=== PATIENT | male | born 1965 | race Two or more races ===

== ENCOUNTER 2020-03-01 21:08 | Inpatient (IN) | payer MEDICARE, OTHER ==
[~2020-03-01] VITALS: Ht 172.7 cm; Wt 74.8 kg
[2020-03-01 21:15] VITALS: BP 107/71
--- NOTE | 2020-03-01 21:15 | NUR ---
[place] Nurse Note: pt brought to the ed department by amabulalia from [facility]. C/O weakness and trembelling x5days. pt had multiple fall due to weakness in shelter. pt has right hand and leg weakness, right is not reactive to light , vitals are stable, and A&Ox4.
--- NOTE | 2020-03-01 21:18 | NUR ---
ED Nurse Note: Iv intiated; blood sent to the lab.
--- NOTE | 2020-03-01 21:32 | Emergency Room Report ---
History of Present Illness General Chief Complaint: General Complaint Source: Medical Record Present Illness HPI Disclaimer: Please note that this report is being documented using SplitON technology. This can lead to erroneous entry secondary to incorrect interpretation by the dictating instrument. HPI: 54-year-old male history of psychiatric disease, hypertension presents from [facility] facility due to generalized weakness and multiple falls. Patient has had multiple falls over the past week. States he has felt some right-sided weakness over the past week as well. Denies any headache nausea or vomiting. Presented by private ambulance from [facility] facility. Allergies: Coded Allergies: No Known Allergies (Unverified , 03/01/20) COVID-19 Screening Contact w/high risk pt: No Experienced COVID-19 symptoms?: No COVID-19 Testing performed INSPECTOR METAL FABRICATING: No Patient History Reviewed Nursing Documentation: PMH: Agreed; PSxH: Agreed Nursing Documentation-PMH Hx Hypertension: Yes Review of Systems All Other Systems: negative except mentioned in HPI Physical Exam Vital Signs Date Time Temp Pulse Resp B/P (MAP) Pulse Ox O2 Delivery O2 Flow Rate FiO2 03/01/20 21:09 98.4 105 18 110/67 (81) 95 Nasal Cannula 2.0 Sp02 EP Interpretation: reviewed, normal General Appearance: well appearing, no apparent distress Head: normocephalic, atraumatic Eyes: bilateral eye PERRL, bilateral eye EOMI ENT: hearing grossly normal, moist mucus membranes Neck: full range of motion, supple, other - C-spine nontender Respiratory: lungs clear, normal breath sounds, no rhonchi, no respiratory distress, no retraction, no wheezing Cardiovascular #1: normal peripheral pulses, regular rate, rhythm, no murmur Gastrointestinal: non tender, soft, non-distended, no guarding Musculoskeletal: other - Full range of motion of all 4 extremities without deformity Neurologic: alert, slug press operator III-XII nml as tested, oriented x3, no focal defects, other - Right upper and lower extremity strength 4+ out of 5 compared to the left Skin: normal color, warm/dry Medical Decision Making ER Course MDM: Differential diagnosis included but not limited to stroke, generalized weakness, dehydration, electrolyte disturbance, head injury to name a few Clinical course-basic laboratory studies were sent, CT scan of the brain susan prince Patient signed out to oncoming physician to follow-up on laboratory studies and final disposition. EKG Diagnostic Results Rate: normal Rhythm: NSR ST Segments: no acute changes Last Vital Signs Date Time Temp Pulse Resp B/P (MAP) Pulse Ox O2 Delivery O2 Flow Rate FiO2 03/01/20 21:09 98.4 105 18 110/67 (81) 95 Nasal Cannula 2.0 Dre Dash M.D. Mar 01, 2020 21:32
[2020-03-01 21:39] LABS: HEMATOCRIT 44.6 % (42.0-52.0); HEMOGLOBIN 16.1 G/DL (14.2-18.0); MEAN CORPUSCULAR VOLUME 81 FL (80-99); PLATELET COUNT 166 K/UL (150-450); RED BLOOD COUNT 5.51 M/UL (4.70-6.10); RED CELL DISTRIBUTION WIDTH 13.5 % (11.6-14.8); WHITE BLOOD COUNT 13.8 K/UL (4.8-10.8)
[2020-03-01 21:57] LABS: CREATININE 1.3 MG/DL (0.55-1.30); POTASSIUM 3.8 MMOL/L (3.5-5.1)
[2020-03-01 22:01] LABS: ALBUMIN 3.8 G/DL (3.4-5.0); ALBUMIN/GLOBULIN RATIO 1.1 (1.0-2.7); BILIRUBIN,TOTAL 0.4 MG/DL (0.2-1.0)
--- NOTE | 2020-03-01 22:08 | Diagnostic Imaging Report ---
EXAM: XR Chest, 1 View CLINICAL HISTORY: WEAK TECHNIQUE: Frontal view of the chest. COMPARISON: No relevant prior studies available. FINDINGS: Lungs: Patchy bibasilar infiltrates. Pleural space: Unremarkable. No pneumothorax. Heart: Unremarkable. No cardiomegaly. Mediastinum: Unremarkable. Bones/joints: No acute fracture. IMPRESSION: Patchy bibasilar infiltrates.
[2020-03-01] MEDS ORDERED: cefTRIAXone 1 GM in NS 55 ML IVPB ONE (22:30)
[2020-03-01] MEDS ORDERED: Azithromycin 500 MG in NS 275 ML IV ONE (22:30)
--- NOTE | 2020-03-01 22:36 | NUR ---
ED Nurse Note: pt left for Ct scan
[2020-03-01] MEDS ORDERED: RISPERDAL2 MG ORAL (22:45)
[2020-03-01] MEDS ORDERED: AMLODIPINE BES2.5 MG ORAL (22:46)
--- NOTE | 2020-03-01 22:46 | NUR ---
ED Nurse Note: pt is back from Ct scan
--- NOTE | 2020-03-01 22:58 | Diagnostic Imaging Report ---
EXAM: CT Head Without Intravenous Contrast CLINICAL HISTORY: WEAK TECHNIQUE: Axial computed tomography images of the head/brain without intravenous contrast. CTDI is 53.4 mGy and DLP is 992.1 mGy-cm. One or more of the following dose reduction techniques were used: automated exposure control, adjustment of the mA and/or kV according to patient size, use of iterative reconstruction technique. COMPARISON: No relevant prior studies available. FINDINGS: Brain: No hemorrhage. No edema. Ventricles: No ventriculomegaly. Bones/joints: No acute fracture. Soft tissues: Mild scalp swelling. Sinuses: No acute sinusitis. Mastoid air cells: No mastoid effusion. IMPRESSION: No acute findings in the head/brain.
--- NOTE | 2020-03-01 23:33 | Emergency Room Report ---
Physical Exam Vital Signs Date Time Temp Pulse Resp B/P (MAP) Pulse Ox O2 Delivery O2 Flow Rate FiO2 03/01/20 21:09 98.4 105 18 110/67 (81) 95 Nasal Cannula 2.0 Medical Decision Making Diagnostic Impression: Primary Impression: Sepsis Qualified Codes: A41.9 - Sepsis, unspecified organism Additional Impressions: Healthcare-associated pneumonia Acute metabolic encephalopathy ER Course This is a 54-year-old male coming from group home. He presents with generalized weakness and shakiness. Patient was signed out to me. Chest x-ray showed right middle lobe infiltrate. CT scan was negative. Patient received antibiotics and fluids here. Will admit for IV antibiotics and monitoring. I discussed the case with Dr. Hernandez. Chest X-Ray Diagnostic Results Chest X-Ray Diagnostic Results : Chest X-Ray Ordered: Yes # of Views/Limited/Complete: 1 View Indication: Shortness of Breath EP Interpretation: Yes Interpretation: no effusion, no pneumothorax, other - Right middle lobe infiltrate Impression: Other - RML infiltrate Electronically Signed by: Sumanth Delgado MD CT/MRI/US Diagnostic Results CT/MRI/US Diagnostic Results : Imaging Test Ordered: CT head Impression Negative per radiologist Last Vital Signs Date Time Temp Pulse Resp B/P (MAP) Pulse Ox O2 Delivery O2 Flow Rate FiO2 03/01/20 21:15 97.2 92 18 107/71 97 Nasal Cannula 2.0 Status: improved Disposition: ADMITTED INPATIENT Condition: Serious Referrals: Nash Hernandez MD (PCP) Sumanth Delgado MD Mar 01, 2020 23:33
--- NOTE | 2020-03-01 23:36 | Emergency Room Report ---
Sepsis Event Note Evaluation Current Stage of Sepsis: Sepsis Possible Source: Pulmonary Focused Exam Allergies: Coded Allergies: No Known Allergies (Unverified , 03/01/20) Date Exam Occurred: Mar 01, 2020 Time Exam Occurred: 23:36 Laboratory Studies Laboratory Tests Test 03/01/20 21:27 03/01/20 21:40 03/01/20 23:11 White Blood Count 13.8 K/UL (4.8-10.8) H Red Blood Count 5.51 M/UL (4.70-6.10) Hemoglobin 16.1 G/DL (14.2-18.0) Hematocrit 44.6 % (42.0-52.0) Mean Corpuscular Volume 81 FL (80-99) Mean Corpuscular Hemoglobin 29.2 PG (27.0-31.0) Mean Corpuscular Hemoglobin Concent 36.0 G/DL (32.0-36.0) Red Cell Distribution Width 13.5 % (11.6-14.8) Platelet Count 166 K/UL (150-450) Mean Platelet Volume 6.6 FL (6.5-10.1) Neutrophils (%) (Auto) % (45.0-75.0) Lymphocytes (%) (Auto) % (20.0-45.0) Monocytes (%) (Auto) % (1.0-10.0) Eosinophils (%) (Auto) % (0.0-3.0) Basophils (%) (Auto) % (0.0-2.0) Differential Total Cells Counted 100 Neutrophils % (Manual) 90 % (45-75) H Lymphocytes % (Manual) 2 % (20-45) L Monocytes % (Manual) 5 % (1-10) Eosinophils % (Manual) 0 % (0-3) Basophils % (Manual) 0 % (0-2) Band Neutrophils 3 % (0-8) Platelet Estimate Adequate Platelet Morphology Normal Red Blood Cell Morphology Normal Prothrombin Time 11.5 SEC (9.30-11.50) Prothromb Time International Ratio 1.0 (0.9-1.1) Activated Partial Thromboplast Time 27 SEC (23-33) Sodium Level 139 MMOL/L (136-145) Potassium Level 3.8 MMOL/L (3.5-5.1) Chloride Level 103 MMOL/L (98-107) Carbon Dioxide Level 27 MMOL/L (21-32) Anion Gap 9 mmol/L (5-15) Blood Urea Nitrogen 20 mg/dL (7-18) H Creatinine 1.3 MG/DL (0.55-1.30) Estimat Glomerular Filtration Rate 58.0 mL/min (>60) Glucose Level 136 MG/DL (74-106) H Lactic Acid Level 3.30 mmol/L (0.4-2.0) H Pending Calcium Level 9.0 MG/DL (8.5-10.1) Total Bilirubin 0.4 MG/DL (0.2-1.0) Aspartate Amino Transf (AST/SGOT) 15 U/L (15-37) Alanine Aminotransferase (ALT/SGPT) 20 U/L (12-78) Alkaline Phosphatase 104 U/L (46-116) Total Protein 7.4 G/DL (6.4-8.2) Albumin 3.8 G/DL (3.4-5.0) Globulin 3.6 g/dL Albumin/Globulin Ratio 1.1 (1.0-2.7) Lipase 299 U/L (73-393) Ammonia 18 umol/L (11-32) Vital Signs Last 24 Hour Vital Signs Date Time Temp Pulse Resp B/P (MAP) Pulse Ox O2 Delivery O2 Flow Rate FiO2 03/01/20 21:15 97.2 92 18 107/71 97 Nasal Cannula 2.0 03/01/20 21:15 91 18 Nasal Cannula 2.0 03/01/20 21:09 98.4 105 18 110/67 (81) 95 Nasal Cannula 2.0 Respiratory Exam: Rhonchi Cardiovascular Exam: RRR Capillary Refill: Less Than 2 Seconds Peripheral Pulse: Strong Pulse Location: Radial Skin Exam: Normal Sumanth Harper MD Mar 01, 2020 23:36
[2020-03-01 23:39] VITALS: BP 114/68
--- NOTE | 2020-03-01 23:40 | NUR ---
ED Nurse Note: Pt is on the bed calm,no sob, and vitals are stable.
[2020-03-02] MEDS ORDERED: LORazepam Inj 2mg/ml 1ml IV ONE (00:45)
--- NOTE | 2020-03-02 03:39 | NUR ---
ED Nurse Note: Called his mom oleg and updated her about her son
--- NOTE | 2020-03-02 06:09 | NUR ---
ED Nurse Note: pt bp is low 81/54. ERMD ordered fluid and pt is Trendelenburg position
[2020-03-02 06:11] VITALS: BP 81/54
--- NOTE | 2020-03-02 07:04 | NUR ---
HAND-OFF: Report given to ESTELA jeff.
--- NOTE | 2020-03-02 07:04 | NUR ---
ED Nurse Note: care recived from Phil.
[2020-03-02 07:40] VITALS: BP_SYST 81; BP_SYST 98; BP_DIAS 54; BP_DIAS 58
--- NOTE | 2020-03-02 07:52 | NUR ---
ED Nurse Note: Pt is resting comfortably on RA. Vitals stable as documented.
--- NOTE | 2020-03-02 08:04 | NUR ---
ED Nurse Note: Report given to Godwin PALMER
--- NOTE | 2020-03-02 08:15 | NUR ---
TRANSFER TO FLOOR: Patient transferred to as ordered, per ER MD. Report given to Godwin PALMER. Belongings and medications given to sent with pt. Vitals are stable as documented on RA. Transfered to room 409-1 ESTELA orozco at bedside.
--- NOTE | 2020-03-02 08:20 | NUR ---
NURSE NOTES: Received pt from ED. pt is awake and confused; disorientated to time. provided reality orientation. respiration is even and unlabored on room air. no coughing noted at this time. noted slight coughing on bilateral lungs base. HOB elevated. skin is intact. pt is high risk for fall. noted with weakness in all extremities. bed alarm on. bed in locked position for fall precaution. no acute distress noted at this time. placed call light within reach.
[2020-03-02 08:55] VITALS: BP 113/67
[2020-03-02] MEDS ORDERED: Acetaminophen 500mg (ES) tab ORAL PRN (11:15)
[2020-03-02 12:00] VITALS: BP 116/72
--- NOTE | 2020-03-02 13:15 | Consultation ---
DATE OF CONSULTATION: 03/02/2020 CONSULTING PHYSICIAN: Linden Perez ATTENDING PHYSICIAN: Nash Hernandez M.D. REASON FOR CONSULTATION: Altered mental status, pneumonia. HISTORY OF PRESENT ILLNESS: This is a 54-year-old male with history of psychiatric disease, hypertension, who presented from [facility] facility due to generalized weakness and multiple falls over the past week. The patient denies fever, headaches, dizziness, chest pain, shortness of breath. CT of the head showed no acute findings in the head or brain. Chest x-ray showed patchy bibasilar infiltrates. The patient was negative for COVID-19. The patient received antibiotics and fluids and was admitted for IV antibiotics and monitoring. PAST MEDICAL HISTORY: Notable for hypertension and psychiatric disease. MEDICATIONS: Amlodipine, risperidone noted. ALLERGIES: No known allergies. FAMILY HISTORY: Noncontributory. PERSONAL AND SOCIAL HISTORY: assisted facility resident. REVIEW OF SYSTEMS: HEENT: Denies any headaches, blurry vision, hoarseness, dysphagia, hearing loss, tinnitus, or loss of balance. CHEST AND LUNGS: Denies any chest discomfort or hemoptysis. CARDIOVASCULAR: Denies any exertional chest pain, pressure, palpitation, orthopnea, PND, or ankle swelling. GASTROINTESTINAL: Denies vomiting, abdominal pain, or oily or foul-smelling stools. No constipation or hematochezia. GENITOURINARY: Denies any frequency, urgency, dysuria, hematuria, flank pain, kidney stone, or kidney disease. NEUROLOGICAL: Complains of mild weakness in his right hand, stating "I cannot extend my index finger." PHYSICAL EXAMINATION: VITAL SIGNS: Blood pressure 112/75, heart rate 61, respiratory rate 16, weight 75 kg, height 170 cm. HEENT: Head examination reveals that the head is normocephalic, atraumatic without deformity or unusual swelling. Pupils are round, reactive to light and accommodation normally. There is no nystagmus, lid lag, or exophthalmos. Nasal mucosa is pink. Vision is normal. CHEST AND LUNGS: Rhonchi noted. CARDIOVASCULAR: Reveals normal S1, S2 without murmurs, rubs, or clicks. ABDOMEN: Soft with no tenderness or organomegaly. RECTAL: Deferred. MUSCULOSKELETAL: There is no tenderness to palpation. NEUROLOGICAL: Alert and oriented x3, no focal defects. Right upper and lower extremity strength 4+/5 compared to the left. LABORATORY DATA: Laboratory testing shows WBC 13.8, otherwise unremarkable. Chemistry show BUN 20, glucose 136, lactic acid 2.3. Coagulation panel within normal limits. ASSESSMENT AND PLAN: 1. Pneumonia. - currently saturating well on room air; no fever, shortness of breath. - we will provide supplemental oxygen as needed. - we will continue azithromycin and Rocephin IV. 2. Weakness. - monitor. The care for this patient was discussed with my supervising physician. Time spent for this case was approximately 31 minutes. Javier Robles M.D. IMANI Rodriguez DR: CHITO JOB#: [id number] CC: SHERYL
[2020-03-02 16:00] VITALS: BP 119/72
--- NOTE | 2020-03-02 17:57 | NUR ---
NURSE HAND-OFF: Important Events on Shift:[NEW ADMIT] Patient Status: [STABLE] Diet: JASMEET DIET SOFR EASY CHEW Pending Orders: N/A Pending Results/Labs:N/A Pending MD notification:N/A Latest Vital Signs: Temperature 97.1 , Pulse 70 , B/P 119 /72 , Respiratory Rate 21 , O2 SAT 97 , Room Air, O2 Flow Rate . Vital Sign Comment: STABLE Latest Larson Fall Score: 85 Fall Risk: High Risk Safety Measures: Call light , Bed Alarm , Side Rails Side Rails x3, Bed position . Fall Precautions: Report given to . Addendum: 03/02/20 at 1927 by Godwin Isabel RN HAND-OFF: Report given to JAYME.
--- NOTE | 2020-03-02 19:20 | NUR ---
NURSE NOTES: The patient is alert and oriented x4 and is calm and cooperative with his care and does not seem to be in any active distress at this time.He is room air with Resp even and unlabored.The patient has a left hand 22g saline lock that is patent and asymptomatic.The bed in low level, call light within easy reach and siderails up x2.Will continue to monitor as indicated.
[2020-03-02 20:00] VITALS: BP 104/51
[2020-03-02] MEDS: Azithromycin 500 MG in D5W 275 ML IV SCH (22:20)
[2020-03-02] MEDS: cefTRIAXone 1 GM in D5W 55 ML IVPB SCH (22:20)
--- NOTE | 2020-03-02 22:30 | History and Physical Report ---
DATE OF ADMISSION: 03/01/2020 HISTORY OF PRESENT ILLNESS: The patient comes in admitted for pneumonia and leukocytosis. Chest x-ray shows right middle lobe infiltrate, COVID negative and also admitted for altered mental status. The patient is more confused than baseline. The patient denies nausea, vomiting, or diarrhea. Does have dry cough and shortness of breath for two days. Denies headache. Denies nausea, vomiting, or diarrhea. Denies fever or chills. PAST MEDICAL HISTORY: Psychosis and hypertension. PAST SURGICAL HISTORY: None. FAMILY HISTORY: Noncontributory. SOCIAL HISTORY: He has history of smoking, history of drug abuse. Denies alcohol abuse. Lives in a boarding again. ALLERGIES: No known allergies. MEDICATIONS: Norvasc, Risperdal. REVIEW OF SYSTEMS: HEENT: Denies headaches. Denies shortness of breath. Does have cough and shortness of breath for 2 days, which is nonproductive. CARDIOVASCULAR: Denies chest pain. Denies nausea, vomiting, or diarrhea. EXTREMITIES: Has generalized pain and feels weak. CENTRAL NERVOUS SYSTEM: Denies change change in speech pattern. Feels weak. PHYSICAL EXAMINATION: VITAL SIGNS: Temperature is 97.2 and blood pressure is 122/68. NECK: Supple. No lymphadenopathy. CHEST: Clear to auscultation CARDIOVASCULAR: Regular rate and rhythm. No murmurs or extra sounds. GASTROINTESTINAL: Soft, nontender, nondistended. No organomegaly. EXTREMITIES: No edema. Moves all four extremities. Reflexes equal on both sides. He has generalized weakness. Dorsalis pedis pulses are present. LABORATORY DATA: Chest x-ray shows infiltrate the right middle lobe. WBC of 13.8, hemoglobin 16.1, platelet of 166. Sodium 139, potassium of 3.8, BUN of 20, creatinine of 1.3, and glucose of 136. ASSESSMENT: 1. Pneumonia. 2. Respiratory insufficiency. 3. Shortness of breath. 4. Altered mental status is most likely due to pneumonia. PLAN: I have consulted internist and Infectious Disease to help with the management of the pneumonia, Dr. Sullivan, Dr. Robles and Dr. Kentrell Arboleda. Antibiotics per Dr. Kentrell Arboleda. Nash Hernandez M.D. DR: Dara JOB#: [id number] CC:
[2020-03-03] VITALS: BP 103/59
[2020-03-03 04:00] VITALS: BP 114/74
--- NOTE | 2020-03-03 07:10 | NUR ---
NURSE HAND-OFF: Important Events on Shift:Alert and stable Patient Status: Diet: Pending Orders: Pending Results/Labs: Pending MD notification: Latest Vital Signs: Temperature 97.4 , Pulse 64 , B/P 114 /74 , Respiratory Rate 19 , O2 SAT 96 , Room Air, O2 Flow Rate . Vital Sign Comment: Latest Larson Fall Score: 85 Fall Risk: High Risk Safety Measures: Call light , Bed Alarm , Side Rails Side Rails x3, Bed position . Fall Precautions: Report given to .
--- NOTE | 2020-03-03 07:34 | NUR ---
NURSE NOTES: Report received from ESTELA Villatoro. Patient awake in bed, alert and oriented x 2, no SOB, bed in lowest position with breaks engaged and alarm on, denies any pain and discomfort at this time, IV line present on left hand, on room air, on fall and safety precautions, will continue to monitor and proceed with plan of care, call light within reach.
[2020-03-03 08:00] VITALS: BP 119/69
[2020-03-03 08:00] LABS: BASOPHILS % (AUTO) 1.1 % (0.0-2.0); EOSINOPHILS % (AUTO) 2.1 % (0.0-3.0); HEMATOCRIT 37.7 % (42.0-52.0); HEMOGLOBIN 13.1 G/DL (14.2-18.0); LYMPHOCYTES % (AUTO) 19.8 % (20.0-45.0); MEAN CORPUSCULAR VOLUME 85 FL (80-99); MONOCYTES % (AUTO) 6.9 % (1.0-10.0); NEUTROPHILS % (AUTO) 70.2 % (45.0-75.0); PLATELET COUNT 154 K/UL (150-450); RED BLOOD COUNT 4.45 M/UL (4.70-6.10); RED CELL DISTRIBUTION WIDTH 13.3 % (11.6-14.8); WHITE BLOOD COUNT 7.1 K/UL (4.8-10.8)
[2020-03-03 08:12] LABS: ALANINE AMINOTRANSFERASE 15 U/L (12-78); ALBUMIN 2.7 G/DL (3.4-5.0); ALBUMIN/GLOBULIN RATIO 0.9 (1.0-2.7); ALKALINE PHOSPHATASE 70 U/L (46-116); ANION GAP 7 mmol/L (5-15); ASPARTATE AMINO TRANSFERASE 19 U/L (15-37); BILIRUBIN,TOTAL 0.3 MG/DL (0.2-1.0); BLOOD UREA NITROGEN 12 mg/dL (7-18); CALCIUM 8.4 MG/DL (8.5-10.1); CARBON DIOXIDE 24 MMOL/L (21-32); CHLORIDE 109 MMOL/L (98-107); POTASSIUM 3.9 MMOL/L (3.5-5.1); SODIUM 140 MMOL/L (136-145)
[2020-03-03 12:00] VITALS: BP 114/67
--- NOTE | 2020-03-03 13:56 | Pulmonology Progress Note ---
Subjective ROS Limited/Unobtainable: No Constitutional: Reports: no symptoms HEENT: Repors: no symptoms Respiratory: Reports: dry cough Cardiovascular: Reports: no symptoms Gastrointestinal/Abdominal: Reports: no symptoms Allergies: Coded Allergies: No Known Allergies (Unverified , 03/01/20) Objective Last 24 Hour Vital Signs Date Time Temp Pulse Resp B/P (MAP) Pulse Ox O2 Delivery O2 Flow Rate FiO2 03/03/20 12:00 97.7 72 19 114/67 (83) 97 03/03/20 09:00 Room Air 03/03/20 08:06 64 119/79 03/03/20 08:00 97.6 78 20 119/69 (86) 97 03/03/20 04:00 97.4 64 19 114/74 (87) 96 03/03/20 00:00 97.5 65 20 103/59 (74) 97 03/02/20 21:00 Room Air 03/02/20 20:00 97.3 78 20 104/51 (68) 97 03/02/20 16:00 97.1 70 21 119/72 (88) 97 Intake and Output 03/02/20 03/03/20 19:00 07:00 Intake Total 1200 ml 250 ml Output Total 1600 ml 720 ml Balance -400 ml -470 ml Intake Oral 1200 ml 250 ml Output Urine Total 1600 ml 720 ml # Voids 1 2 Objective 03/03 saturating well on RA General Appearance: WD/WN, no acute distress HEENT: normocephalic, atraumatic Respiratory: other - rhonchi Cardiovascular: normal rate, regular rhythm Abdomen: soft, non tender Extremities: no edema Microbiology Date/Time Source Procedure Growth Status 03/01/20 22:16 Nasopharynx SARS-CoV-2 RdRp Gene Assay - Final Complete 03/01/20 21:27 Blood Blood Culture - Preliminary NO GROWTH AFTER 24 HOURS Resulted 03/01/20 21:27 Blood Blood Culture - Preliminary NO GROWTH AFTER 24 HOURS Resulted Laboratory Tests 03/03/20 06:50: White Blood Count 7.1, Red Blood Count 4.45L, Hemoglobin 13.1L, Hematocrit 37.7L , Mean Corpuscular Volume 85, Mean Corpuscular Hemoglobin 29.3, Mean Corpuscular Hemoglobin Concent 34.7, Red Cell Distribution Width 13.3, Platelet Count 154, Mean Platelet Volume 6.6, Neutrophils (%) (Auto) 70.2, Lymphocytes (%) (Auto) 19.8L, Monocytes (%) (Auto) 6.9, Eosinophils (%) (Auto) 2.1, Basophils (%) (Auto) 1.1, Sodium Level 140, Potassium Level 3.9, Chloride Level 109H, Carbon Dioxide Level 24, Anion Gap 7, Blood Urea Nitrogen 12, Creatinine 1.0, Estimat Glomerular Filtration Rate > 60, Glucose Level 83, Calcium Level 8.4L, Total Bilirubin 0.3, Aspartate Amino Transf (AST/SGOT) 19, Alanine Aminotransferase (ALT/SGPT) 15, Alkaline Phosphatase 70, Total Protein 5.6L, Albumin 2.7L, Globulin 2.9, Albumin/Globulin Ratio 0.9L Current Medications Medications (Trade) Dose Ordered Sig/Emily Route PRN Reason Start Time Stop Time Status Last Admin Dose Admin Acetaminophen (Tylenol) 500 mg Q4H PRN ORAL Mild Pain (Pain Scale 1-3) 03/02/20 11:15 04/01/20 11:14 Amlodipine Besylate (Norvasc) 2.5 mg DAILY ORAL 03/03/20 09:00 04/02/20 08:59 03/03/20 08:06 Azithromycin 500 mg/Dextrose 275 ml @ 275 mls/hr Q24HRS IV 03/02/20 22:30 03/08/20 23:29 03/02/20 22:20 Ceftriaxone Sodium 1 gm/ Dextrose 55 ml @ 110 mls/hr Q24H IVPB 03/02/20 22:00 03/09/20 21:59 03/02/20 22:20 Risperidone (RisperDAL) 3 mg BID ORAL 03/02/20 18:00 04/16/20 17:59 03/03/20 08:06 Assessment/Plan Assessment/Plan 1. Pneumonia. - currently saturating well on room air; no fever, shortness of breath. - we will provide supplemental oxygen as needed. - we will continue azithromycin and Rocephin IV. 2. Weakness. - monitor. 3. AMS, likely secondary to #1 The care for this patient was discussed with my supervising physician. Time spent for this case was approximately 31 minutes. Devon Powell Mar 03, 2020 13:56
[2020-03-03 16:00] VITALS: BP 121/51
--- NOTE | 2020-03-03 19:36 | NUR ---
NURSE HAND-OFF: Important Events on Shift:[fall and safety precautions, monitoring VS and labs] Patient Status: [stable] Diet: [JASMEET soft easy chew] Pending Orders: [] Pending Results/Labs:[] Pending MD notification:[] Latest Vital Signs: Temperature 97.3 , Pulse 78 , B/P 121 /51 , Respiratory Rate 20 , O2 SAT 96 , Room Air, O2 Flow Rate . Vital Sign Comment: [] Latest Larson Fall Score: 85 Fall Risk: High Risk Safety Measures: Call light , Bed Alarm , Side Rails Side Rails x3, Bed position . Fall Precautions: Report given to [ESTELA Major].
--- NOTE | 2020-03-03 19:45 | NUR ---
NURSE NOTES: Patient awake in bed, alert and oriented x 2, no SOB, asking for food at this time. Bed is locked in lowest position, bed alarm on, denies any pain or discomfort at this time, IV line present on left hand, on room air, on fall and safety precautions, will continue to monitor and proceed with plan of care, call light within reach.
[2020-03-03 20:00] VITALS: BP 102/74
--- NOTE | 2020-03-03 20:01 | Consultation ---
DATE OF CONSULTATION: 03/03/2020 INFECTIOUS DISEASE CONSULT CONSULTING PHYSICIAN: Kentrell Arboleda M.D. ATTENDING PHYSICIAN: Nash Hernandez M.D. REASON FOR CONSULT: Pneumonia. HISTORY OF PRESENT ILLNESS: A 54-year-old white male admitted on 03/01/2020 from a [facility] facility because of weakness, multiple falls. At the time of admission, he had tachycardia with heart rate of 105 and leukocytosis of 13.8. The patient has some lung infiltrate in chest x-ray. PAST MEDICAL HISTORY: Hypertension, psychiatric problem. MEDICATIONS: Getting amlodipine, azithromycin, ceftriaxone, Risperdal, Tylenol. SOCIAL HISTORY: Smoking. Has history of drug abuse. Denies alcohol abuse. Lives in [facility]. REVIEW OF SYSTEMS: The patient has no fever, no chills, no coughing, no shortness of breath, no nausea, no vomiting, no diarrhea. PHYSICAL EXAMINATION: VITAL SIGNS: Temperature 97.7, pulse 72, blood pressure 114/67. GENERAL APPEARANCE: Seems to have normal weight. HEENT: Head and neck, pink conjunctiva. HEART: Normal rate. LUNGS: Clear. ABDOMEN: Soft. EXTREMITIES: No edema. NEUROLOGIC: He is awake, alert, seems anxious. LABORATORY AND DIAGNOSTIC DATA: WBC today is 7.1, hemoglobin 13.1, hematocrit 37.7, platelets is 154. Sodium 140, potassium 3.9, chloride 109, bicarbonate 24, BUN 12, creatinine 1. Lactic acid at the time of admission was 3.3. Albumin is 2.7. Chest x-ray showed patchy basilar infiltrate. CT scan of the head, no acute findings. IMPRESSION: 1. Sepsis with tachycardia and leukocytosis at the time of admission. 2. Has pneumonia. COVID test is negative. 3. Hypertension. 4. Nicotine dependence. 5. Lactic acidosis. RECOMMENDATION: I agree with Zithromax and Rocephin. We will follow up the cultures at the end of my exam. I thank Dr. Hernandez for involving me in the care of this patient. Kentrell Arboleda M.D. DR: SONAM JOB#: [id number] CC: SHERYL
--- NOTE | 2020-03-03 20:14 | General Progress Note ---
Subjective ROS Limited/Unobtainable: Yes Allergies: Coded Allergies: No Known Allergies (Unverified , 03/01/20) Objective Last 24 Hour Vital Signs Date Time Temp Pulse Resp B/P (MAP) Pulse Ox O2 Delivery O2 Flow Rate FiO2 03/03/20 16:00 97.3 78 20 121/51 (74) 96 03/03/20 12:00 97.7 72 19 114/67 (83) 97 03/03/20 09:00 Room Air 03/03/20 08:06 64 119/79 03/03/20 08:00 97.6 78 20 119/69 (86) 97 03/03/20 04:00 97.4 64 19 114/74 (87) 96 03/03/20 00:00 97.5 65 20 103/59 (74) 97 03/02/20 21:00 Room Air Intake and Output 03/02/20 03/03/20 19:00 07:00 Intake Total 1200 ml 250 ml Output Total 1600 ml 720 ml Balance -400 ml -470 ml Intake Oral 1200 ml 250 ml Output Urine Total 1600 ml 720 ml # Voids 1 2 Laboratory Tests 03/03/20 06:50: White Blood Count 7.1, Red Blood Count 4.45L, Hemoglobin 13.1L, Hematocrit 37.7L , Mean Corpuscular Volume 85, Mean Corpuscular Hemoglobin 29.3, Mean Corpuscular Hemoglobin Concent 34.7, Red Cell Distribution Width 13.3, Platelet Count 154, Mean Platelet Volume 6.6, Neutrophils (%) (Auto) 70.2, Lymphocytes (%) (Auto) 19.8L, Monocytes (%) (Auto) 6.9, Eosinophils (%) (Auto) 2.1, Basophils (%) (Auto) 1.1, Sodium Level 140, Potassium Level 3.9, Chloride Level 109H, Carbon Dioxide Level 24, Anion Gap 7, Blood Urea Nitrogen 12, Creatinine 1.0, Estimat Glomerular Filtration Rate > 60, Glucose Level 83, Calcium Level 8.4L, Total Bilirubin 0.3, Aspartate Amino Transf (AST/SGOT) 19, Alanine Aminotransferase (ALT/SGPT) 15, Alkaline Phosphatase 70, Total Protein 5.6L, Albumin 2.7L, Globulin 2.9, Albumin/Globulin Ratio 0.9L Height (Feet): 5 Height (Inches): 8.00 Weight (Pounds): 165 Assessment/Plan Problem List: (1) Sepsis ICD Codes: A41.9 - Sepsis, unspecified organism SNOMED: 90183450, 482259556 Qualifiers: Qualified Codes: A41.9 - Sepsis, unspecified organism (2) Healthcare-associated pneumonia ICD Codes: J18.9 - Pneumonia, unspecified organism SNOMED: 733528420, 139460671 (3) Acute metabolic encephalopathy ICD Codes: G93.41 - Metabolic encephalopathy SNOMED: 84012814, 576859240 Status: progressing Assessment/Plan: afebrile nac sepsis pna resp insuff abx per id reviewed chart and labs Nash Hernandez MD Mar 03, 2020 20:14
[2020-03-03] MEDS: cefTRIAXone 1 GM in D5W 55 ML IVPB SCH (21:42)
[2020-03-03] MEDS: Azithromycin 500 MG in D5W 275 ML IV SCH (21:43)
[2020-03-04] VITALS (7 sets, daily range): BP systolic 92–130; BP diastolic 59–76
--- NOTE | 2020-03-04 08:00 | NUR ---
NURSE HAND-OFF: Important Events on Shift:[fall and safety precautions, monitoring VS and labs] Patient Status: [stable] Diet: [JASMEET soft easy chew] monitor for fall precautions, pt not trying to get out of bed overnight, rested comfortably VSS Latest Larson Fall Score: 85 Fall Risk: High Risk Safety Measures: Call light , Bed Alarm , Side Rails Side Rails x3, Bed position . Fall Precautions: Report given to Chuy PALMER
--- NOTE | 2020-03-04 09:06 | Pulmonology Progress Note ---
Subjective ROS Limited/Unobtainable: Yes Interval Events: none new reported per nursing Constitutional: Reports: no symptoms HEENT: Repors: no symptoms Respiratory: Reports: dry cough Cardiovascular: Reports: no symptoms Gastrointestinal/Abdominal: Reports: no symptoms Allergies: Coded Allergies: No Known Allergies (Unverified , 03/01/20) Objective Last 24 Hour Vital Signs Date Time Temp Pulse Resp B/P (MAP) Pulse Ox O2 Delivery O2 Flow Rate FiO2 03/04/20 04:00 97.3 60 16 95/60 (72) 95 03/04/20 00:00 97.2 76 16 130/76 (94) 99 03/03/20 21:00 Room Air 03/03/20 20:00 97.0 65 20 102/74 (83) 97 03/03/20 16:00 97.3 78 20 121/51 (74) 96 03/03/20 12:00 97.7 72 19 114/67 (83) 97 Intake and Output 03/03/20 03/04/20 19:00 07:00 Intake Total 480 ml Balance 480 ml Intake Oral 480 ml Objective 03/04 no change 03/03 saturating well on RA General Appearance: WD/WN, no acute distress HEENT: normocephalic, atraumatic Respiratory: other - rhonchi Cardiovascular: normal rate, regular rhythm Abdomen: soft, non tender Extremities: no edema Microbiology Date/Time Source Procedure Growth Status 03/01/20 22:16 Nasopharynx SARS-CoV-2 RdRp Gene Assay - Final Complete 03/01/20 21:27 Blood Blood Culture - Preliminary NO GROWTH AFTER 48 HOURS Resulted 03/01/20 21:27 Blood Blood Culture - Preliminary NO GROWTH AFTER 48 HOURS Resulted Current Medications Medications (Trade) Dose Ordered Sig/Emily Route PRN Reason Start Time Stop Time Status Last Admin Dose Admin Acetaminophen (Tylenol) 500 mg Q4H PRN ORAL Mild Pain (Pain Scale 1-3) 03/02/20 11:15 04/01/20 11:14 Amlodipine Besylate (Norvasc) 2.5 mg DAILY ORAL 03/03/20 09:00 04/02/20 08:59 03/03/20 08:06 Azithromycin 500 mg/Dextrose 275 ml @ 275 mls/hr Q24HRS IV 03/02/20 22:30 03/08/20 23:29 03/03/20 21:43 Ceftriaxone Sodium 1 gm/ Dextrose 55 ml @ 110 mls/hr Q24H IVPB 03/02/20 22:00 03/09/20 21:59 03/03/20 21:42 Risperidone (RisperDAL) 3 mg BID ORAL 03/02/20 18:00 04/16/20 17:59 03/03/20 17:40 Assessment/Plan Assessment/Plan 1. Pneumonia. - currently saturating well on room air; no fever, shortness of breath. - we will provide supplemental oxygen as needed. - we will continue azithromycin and Rocephin IV. - ok to switch to PO Abx 2. Weakness. - monitor. 3. AMS, likely secondary to #1 medically stable for dc The care for this patient was discussed with my supervising physician. Time spent for this case was approximately 31 minutes. Devon Powell Mar 04, 2020 09:05 Javier Robles MD Mar 04, 2020 17:45
--- NOTE | 2020-03-04 10:26 | NUR ---
NURSE NOTES: Received patient on bed awake. IV site intact adn patent. Bed in low and locked position, call light in reach. Patient denies pain or shortness of breath. oom board updated. Fall precautions reinforced, patient instructed to use call light for assistance. Patient verbally stated he understand. Will continue to monitor.
--- NOTE | 2020-03-04 11:00 | NUR ---
NURSE NOTES: Report received from Chuy PALMER. Patient seen on rounds, awake and up in bed on room air. PIV on left hand patent and intact. Pt is continent and able to use urinal. Skin is intact. Bed low and locked, siderails up x2, call light placed within reach and instructed to call nurse for assistance. will continue to monitor.
--- NOTE | 2020-03-04 11:54 | General Progress Note ---
Subjective ROS Limited/Unobtainable: Yes Allergies: Coded Allergies: No Known Allergies (Unverified , 03/01/20) Objective Last 24 Hour Vital Signs Date Time Temp Pulse Resp B/P (MAP) Pulse Ox O2 Delivery O2 Flow Rate FiO2 03/04/20 10:26 54 110/61 03/04/20 10:24 110/61 (77) 03/04/20 09:00 Room Air 03/04/20 08:00 98.4 54 18 92/59 (70) 95 03/04/20 04:00 97.3 60 16 95/60 (72) 95 03/04/20 00:00 97.2 76 16 130/76 (94) 99 03/03/20 21:00 Room Air 03/03/20 20:00 97.0 65 20 102/74 (83) 97 03/03/20 16:00 97.3 78 20 121/51 (74) 96 03/03/20 12:00 97.7 72 19 114/67 (83) 97 Intake and Output 03/03/20 03/04/20 19:00 07:00 Intake Total 480 ml Balance 480 ml Intake Oral 480 ml Height (Feet): 5 Height (Inches): 8.00 Weight (Pounds): 165 Assessment/Plan Problem List: (1) Sepsis ICD Codes: A41.9 - Sepsis, unspecified organism SNOMED: 93549941, 477469332 Qualifiers: Qualified Codes: A41.9 - Sepsis, unspecified organism (2) Healthcare-associated pneumonia ICD Codes: J18.9 - Pneumonia, unspecified organism SNOMED: 804455926, 135499542 (3) Acute metabolic encephalopathy ICD Codes: G93.41 - Metabolic encephalopathy SNOMED: 49675813, 871343410 Status: progressing Assessment/Plan: improving weak no fever sepsis pna resp insuff abx per id reviewed chart and labs Nash Hernandez MD Mar 04, 2020 11:54
--- NOTE | 2020-03-04 12:15 | Infectious Diseases Prog Note ---
Assessment/Plan Assessment/Plan IMPRESSION: 1. Sepsis 2. Has pneumonia. COVID test is negative. 3. Hypertension. 4. Nicotine dependence. 5. Lactic acidosis. RECOMMENDATION: Continue Zithromax and Rocephin. We will follow up the cultures Subjective ROS Limited/Unobtainable: No Constitutional: Reports: no symptoms Respiratory: Reports: dry cough Gastrointestinal/Abdominal: Reports: no symptoms Genitourinary: Reports: no symptoms Allergies: Coded Allergies: No Known Allergies (Unverified , 03/01/20) Objective Last 24 Hour Vital Signs Date Time Temp Pulse Resp B/P (MAP) Pulse Ox O2 Delivery O2 Flow Rate FiO2 03/04/20 12:00 97.8 61 18 104/61 (75) 96 03/04/20 10:26 54 110/61 03/04/20 10:24 110/61 (77) 03/04/20 09:00 Room Air 03/04/20 08:00 98.4 54 18 92/59 (70) 95 03/04/20 04:00 97.3 60 16 95/60 (72) 95 03/04/20 00:00 97.2 76 16 130/76 (94) 99 03/03/20 21:00 Room Air 03/03/20 20:00 97.0 65 20 102/74 (83) 97 03/03/20 16:00 97.3 78 20 121/51 (74) 96 Height (Feet): 5 Height (Inches): 8.00 Weight (Pounds): 165 HEENT: mucous membranes moist Respiratory/Chest: lungs clear Cardiovascular: bradycardia Abdomen: soft, non tender Extremities: no edema Neurologic/Psychiatric: alert, responsive Microbiology Date/Time Source Procedure Growth Status 03/02/20 08:00 Rectum Received 03/01/20 22:16 Nasopharynx SARS-CoV-2 RdRp Gene Assay - Final Complete 03/01/20 21:27 Blood Blood Culture - Preliminary NO GROWTH AFTER 48 HOURS Resulted 03/01/20 21:27 Blood Blood Culture - Preliminary NO GROWTH AFTER 48 HOURS Resulted Current Medications Medications (Trade) Dose Ordered Sig/Emily Route PRN Reason Start Time Stop Time Status Last Admin Dose Admin Acetaminophen (Tylenol) 500 mg Q4H PRN ORAL Mild Pain (Pain Scale 1-3) 03/02/20 11:15 04/01/20 11:14 Amlodipine Besylate (Norvasc) 2.5 mg DAILY ORAL 03/03/20 09:00 04/02/20 08:59 03/04/20 10:26 Azithromycin 500 mg/Dextrose 275 ml @ 275 mls/hr Q24HRS IV 03/02/20 22:30 03/08/20 23:29 03/03/20 21:43 Ceftriaxone Sodium 1 gm/ Dextrose 55 ml @ 110 mls/hr Q24H IVPB 03/02/20 22:00 03/09/20 21:59 03/03/20 21:42 Risperidone (RisperDAL) 3 mg BID ORAL 03/02/20 18:00 04/16/20 17:59 03/04/20 10:26 Kentrell Arboleda MD Mar 04, 2020 12:15
--- NOTE | 2020-03-04 16:40 | NUR ---
CASE MANAGEMENT:INITIAL REVIEW 03/02/20 54 YR OLD MALE BIBA FROM [facility] CC;GENERAL COMPLAINT SI;SEPSIS. AMS. PNEUMONIA. ACUTE ENCEPHALOPATHY. 98.4 105 19 107/71 96% ON 2L NC WBC 13.8 BUN 20 BG 136 COVID RAPID ~ NEGATIVE HEAD CT ~ NO ACUTE FINDINGS CXR ~ Patchy bibasilar infiltrates. IS;IVF NS BOLUS ROCEPHIN IV ZITHROMAX IV ATIVAN IV ADMITTED TO MED SURG MED SURG STATUS DCP;FORM [facility] * CASE MANAGEMENT:REVIEW 03/04/20 SI;SEPSIS. PNA. ENCEPHALOPATHY. 98.4 54 18 92/59 94% ON RA IS;ZITHROMAX IV ROCEPHIN IV MED SURG STATUS DCP;FROM [facility]
--- NOTE | 2020-03-04 19:12 | NUR ---
NURSE HAND-OFF: Important Events on Shift: No adverse events noted Patient Status: Stable Diet: JASMEET, soft easy chew Pending Orders: N Pending Results/Labs:N Pending MD notification:N Latest Vital Signs: Temperature 97.3 , Pulse 63 , B/P 113 /68 , Respiratory Rate 18 , O2 SAT 94 , Room Air, O2 Flow Rate . Vital Sign Comment: Latest Larson Fall Score: 85 Fall Risk: High Risk Safety Measures: Call light , Bed Alarm , Side Rails Side Rails x3, Bed position . Fall Precautions: Report given to Kitty Renteria RN.
--- NOTE | 2020-03-04 20:11 | NUR ---
NURSE NOTES: Received pt alert, thinks he is at the other facility, reoriented. hi fall risk, fall precautions reviewed with patient, bed alarm on, bed close to the station.
[2020-03-04] MEDS: cefTRIAXone 1 GM in D5W 55 ML IVPB SCH (22:10)
[2020-03-04] MEDS: Azithromycin 500 MG in D5W 275 ML IV SCH (22:11)
[2020-03-05 00:30] VITALS: BP 103/60
[2020-03-05 04:00] VITALS: BP 103/59
--- NOTE | 2020-03-05 07:08 | NUR ---
NURSE HAND-OFF: Important Events on Shift:endorsed hx falls, high fall risk, patient cooperative, may need pt eval. Patient Status: stable Diet: soft easy chew, sis Pending Orders: Pending Results/Labs: Pending MD notification: Latest Vital Signs: Temperature 97.3 , Pulse 64 , B/P 103 /59 , Respiratory Rate 18 , O2 SAT 95 , Room Air, O2 Flow Rate . Vital Sign Comment: stable, note sbp early 100's Latest Larson Fall Score: 85 Fall Risk: High Risk Safety Measures: Call light , Bed Alarm , Side Rails Side Rails x3, Bed position . Fall Precautions: Yellow Socks Yellow Gown Door Sign Patient Fall Education Report given to Jessica Perez
--- NOTE | 2020-03-05 07:10 | NUR ---
NURSE NOTES: Received patient in bed,awake,verbally responsive, not in respiratory/cardiac distress. Breathing is even and unlabored. Denies pain or discomfort. Bed is in lowest position and locked. Bed alarm is on, call light and personnel items within reach. Will continue plan of care.
[2020-03-05 08:00] VITALS: BP 108/64
--- NOTE | 2020-03-05 08:47 | Pulmonology Progress Note ---
Subjective ROS Limited/Unobtainable: No Interval Events: none new reported per nursing Constitutional: Reports: no symptoms HEENT: Repors: no symptoms Respiratory: Reports: dry cough Cardiovascular: Reports: no symptoms Gastrointestinal/Abdominal: Reports: no symptoms Allergies: Coded Allergies: No Known Allergies (Unverified , 03/01/20) Objective Last 24 Hour Vital Signs Date Time Temp Pulse Resp B/P (MAP) Pulse Ox O2 Delivery O2 Flow Rate FiO2 03/05/20 08:31 79 108/64 03/05/20 08:00 97.9 79 18 108/64 (79) 95 03/05/20 04:00 97.3 64 18 103/59 (74) 95 03/05/20 00:30 97.8 63 18 103/60 (74) 94 03/04/20 20:00 98.0 61 18 100/62 (75) 94 03/04/20 19:59 Room Air 03/04/20 16:09 97.3 63 18 113/68 (83) 94 03/04/20 12:00 97.8 61 18 104/61 (75) 96 03/04/20 10:26 54 110/61 03/04/20 10:24 110/61 (77) 03/04/20 09:00 Room Air Intake and Output 03/04/20 03/05/20 19:00 07:00 Intake Total 1080 ml 830 ml Output Total 1100 ml 500 ml Balance -20 ml 330 ml Intake Oral 1080 ml 500 ml IV Total 330 ml Output Urine Total 1100 ml 500 ml # Voids 4 Objective 03/05 saturations stable on RA 03/04 no change 03/03 saturating well on RA General Appearance: WD/WN, no acute distress HEENT: normocephalic, atraumatic Respiratory: other - rhonchi Cardiovascular: normal rate, regular rhythm Abdomen: soft, non tender Extremities: no edema Current Medications Medications (Trade) Dose Ordered Sig/Emily Route PRN Reason Start Time Stop Time Status Last Admin Dose Admin Acetaminophen (Tylenol) 500 mg Q4H PRN ORAL Mild Pain (Pain Scale 1-3) 03/02/20 11:15 04/01/20 11:14 Amlodipine Besylate (Norvasc) 2.5 mg DAILY ORAL 03/03/20 09:00 04/02/20 08:59 03/04/20 10:26 Azithromycin 500 mg/Dextrose 275 ml @ 275 mls/hr Q24HRS IV 03/02/20 22:30 03/08/20 23:29 03/04/20 22:11 Ceftriaxone Sodium 1 gm/ Dextrose 55 ml @ 110 mls/hr Q24H IVPB 03/02/20 22:00 03/09/20 21:59 03/04/20 22:10 Risperidone (RisperDAL) 3 mg BID ORAL 03/02/20 18:00 04/16/20 17:59 03/05/20 08:33 Assessment/Plan Assessment/Plan 1. Pneumonia. - currently saturating well on room air; no fever, shortness of breath. - provide supplemental oxygen as needed. - Continue azithromycin and Rocephin IV. - ok to switch to PO Abx 2. Weakness. - monitor. 3. AMS on arrival, likely secondary to #1 medically stable for dc back to facility The care for this patient was discussed with my supervising physician. Time spent for this case was approximately 31 minutes. Devon Powell Mar 05, 2020 08:47 Javier Robles MD Mar 05, 2020 15:33
--- NOTE | 2020-03-05 10:09 | NUR ---
NURSE NOTES: RN spoke to Dr. Hernandez who made round this morning. RN let him know that patient is clear from pulmo. Dr. Hernandez said patient needs to be cleared by ID and may be DC planning tomorrow not today.
--- NOTE | 2020-03-05 11:49 | Infectious Diseases Prog Note ---
Assessment/Plan Assessment/Plan IMPRESSION: 1. Sepsis 2. Pneumonia. COVID19 test is negative. 3. Hypertension. 4. Nicotine dependence. 5. Lactic acidosis. RECOMMENDATION: Continue Zithromax and Rocephin. We will follow up the cultures Subjective ROS Limited/Unobtainable: Yes Respiratory: Reports: no symptoms Gastrointestinal/Abdominal: Reports: no symptoms Genitourinary: Reports: no symptoms Allergies: Coded Allergies: No Known Allergies (Unverified , 03/01/20) Objective Last 24 Hour Vital Signs Date Time Temp Pulse Resp B/P (MAP) Pulse Ox O2 Delivery O2 Flow Rate FiO2 03/05/20 09:00 Room Air 03/05/20 08:31 79 108/64 03/05/20 08:00 97.9 79 18 108/64 (79) 95 03/05/20 04:00 97.3 64 18 103/59 (74) 95 03/05/20 00:30 97.8 63 18 103/60 (74) 94 03/04/20 20:00 98.0 61 18 100/62 (75) 94 03/04/20 19:59 Room Air 03/04/20 16:09 97.3 63 18 113/68 (83) 94 03/04/20 12:00 97.8 61 18 104/61 (75) 96 Height (Feet): 5 Height (Inches): 8.00 Weight (Pounds): 165 HEENT: mucous membranes moist Respiratory/Chest: lungs clear Cardiovascular: normal rate Abdomen: soft, non tender Extremities: no edema Neurologic/Psychiatric: alert, responsive Current Medications Medications (Trade) Dose Ordered Sig/Emily Route PRN Reason Start Time Stop Time Status Last Admin Dose Admin Acetaminophen (Tylenol) 500 mg Q4H PRN ORAL Mild Pain (Pain Scale 1-3) 03/02/20 11:15 04/01/20 11:14 Amlodipine Besylate (Norvasc) 2.5 mg DAILY ORAL 03/03/20 09:00 04/02/20 08:59 03/04/20 10:26 Azithromycin 500 mg/Dextrose 275 ml @ 275 mls/hr Q24HRS IV 03/02/20 22:30 03/08/20 23:29 03/04/20 22:11 Ceftriaxone Sodium 1 gm/ Dextrose 55 ml @ 110 mls/hr Q24H IVPB 03/02/20 22:00 03/09/20 21:59 03/04/20 22:10 Risperidone (RisperDAL) 3 mg BID ORAL 03/02/20 18:00 04/16/20 17:59 03/05/20 08:33 Kentrell Arboleda MD Mar 05, 2020 11:49
[2020-03-05 12:00] VITALS: BP 124/65
[2020-03-05 16:00] VITALS: BP 118/62
--- NOTE | 2020-03-05 18:53 | NUR ---
NURSE HAND-OFF: Important Events on Shift: n/a Patient Status: stable Diet: low sodium soft easy chew Pending Orders: [] Pending Results/Labs:[] Pending MD notification:[] Latest Vital Signs: Temperature 98.4 , Pulse 75 , B/P 118 /62 , Respiratory Rate 18 , O2 SAT 97 , Room Air, O2 Flow Rate . Vital Sign Comment: [] Latest Larson Fall Score: 85 Fall Risk: High Risk Safety Measures: Call light , Bed Alarm , Side Rails Side Rails x3, Bed position . Fall Precautions: Yellow Socks Yellow Gown Door Sign Patient Fall Education Report given to Shayne and endorsed plan of care.
--- NOTE | 2020-03-05 19:45 | NUR ---
NURSE NOTES: Received report from Marie PALMER. Patient is awake, alert, and oriented x4 but confused sometime. On room air, breathing is even and unlabored. No C/O pain or distress noted. IV left FA sailing lock intact and patent with no bleeding noted. Bed low and locked. Call light within reach.
[2020-03-05 20:00] VITALS: BP 105/68
--- NOTE | 2020-03-05 21:44 | General Progress Note ---
Subjective ROS Limited/Unobtainable: Yes Allergies: Coded Allergies: No Known Allergies (Unverified , 03/01/20) Objective Last 24 Hour Vital Signs Date Time Temp Pulse Resp B/P (MAP) Pulse Ox O2 Delivery O2 Flow Rate FiO2 03/05/20 16:00 98.4 75 18 118/62 (80) 97 03/05/20 12:00 98.0 73 18 124/65 (84) 95 03/05/20 09:00 Room Air 03/05/20 08:31 79 108/64 03/05/20 08:00 97.9 79 18 108/64 (79) 95 03/05/20 04:00 97.3 64 18 103/59 (74) 95 03/05/20 00:30 97.8 63 18 103/60 (74) 94 Intake and Output 03/04/20 03/05/20 19:00 07:00 Intake Total 1080 ml 830 ml Output Total 1100 ml 500 ml Balance -20 ml 330 ml Intake Oral 1080 ml 500 ml IV Total 330 ml Output Urine Total 1100 ml 500 ml # Voids 4 Height (Feet): 5 Height (Inches): 8.00 Weight (Pounds): 165 Assessment/Plan Problem List: (1) Sepsis ICD Codes: A41.9 - Sepsis, unspecified organism SNOMED: 26196303, 351912439 Qualifiers: Qualified Codes: A41.9 - Sepsis, unspecified organism (2) Healthcare-associated pneumonia ICD Codes: J18.9 - Pneumonia, unspecified organism SNOMED: 354215530, 272066463 (3) Acute metabolic encephalopathy ICD Codes: G93.41 - Metabolic encephalopathy SNOMED: 34692174, 937846010 Status: progressing Assessment/Plan: sepsis improving pna improving resp insuff abx per Nash Hernández MD Mar 05, 2020 21:44
[2020-03-05] MEDS: cefTRIAXone 1 GM in D5W 55 ML IVPB SCH (22:15)
[2020-03-05] MEDS: Azithromycin 500 MG in D5W 275 ML IV SCH (23:04)
[2020-03-06] VITALS: BP 103/63
[2020-03-06 04:00] VITALS: BP 106/58
--- NOTE | 2020-03-06 07:29 | NUR ---
NURSE HAND-OFF: Important Events on Shift: ABX treatment, D/C planning Patient Status: Stable Diet: JASMEET (easy chew) Pending Orders: [] Pending Results/Labs:[] Pending MD notification:[] Latest Vital Signs: Temperature 97.3 , Pulse 51 , B/P 106 /58 , Respiratory Rate 16 , O2 SAT 96 , Room Air, O2 Flow Rate . Vital Sign Comment: VS stable Latest Larson Fall Score: 85 Fall Risk: High Risk Safety Measures: Call light , Bed Alarm , Side Rails Side Rails x3, Bed position . Fall Precautions: Yellow Socks Yellow Gown Door Sign Patient Fall Education Report given to Carlee PALMER.
--- NOTE | 2020-03-06 07:46 | NUR ---
NURSE NOTES: Patient alert x3; on room air, no sing of distress and shortness of breath; no sing of chest pain; IV LFA flushes well; Urinal within reach; side rails up x2, breaks engaged, bed at lowest position, call light within reach; will keep monitoring.
[2020-03-06 08:00] VITALS: BP 137/58
--- NOTE | 2020-03-06 09:03 | Pulmonology Progress Note ---
Subjective ROS Limited/Unobtainable: Yes Interval Events: none new reported per nursing Constitutional: Reports: no symptoms HEENT: Repors: no symptoms Respiratory: Reports: dry cough Cardiovascular: Reports: no symptoms Gastrointestinal/Abdominal: Reports: no symptoms Allergies: Coded Allergies: No Known Allergies (Unverified , 03/01/20) Objective Last 24 Hour Vital Signs Date Time Temp Pulse Resp B/P (MAP) Pulse Ox O2 Delivery O2 Flow Rate FiO2 03/06/20 08:21 78 137/58 03/06/20 08:00 97.9 78 16 137/58 (84) 97 03/06/20 04:00 97.3 51 16 106/58 (74) 96 03/06/20 00:00 97.7 65 16 103/63 (76) 95 03/05/20 21:00 Room Air 03/05/20 20:00 97.2 61 16 105/68 (80) 95 03/05/20 16:00 98.4 75 18 118/62 (80) 97 03/05/20 12:00 98.0 73 18 124/65 (84) 95 Intake and Output 03/05/20 03/06/20 19:00 07:00 Intake Total 1700 ml 330 ml Output Total 1650 ml 275 ml Balance 50 ml 55 ml Intake Oral 1700 ml IV Total 330 ml Output Urine Total 1650 ml 275 ml # Voids 6 2 Objective 03/06 no change 03/05 saturations stable on RA 03/04 no change 03/03 saturating well on RA General Appearance: WD/WN, no acute distress HEENT: normocephalic, atraumatic Respiratory: chest wall non-tender, other - rhonchi Cardiovascular: normal rate, regular rhythm Abdomen: soft, non tender Extremities: no edema Current Medications Medications (Trade) Dose Ordered Sig/Emily Route PRN Reason Start Time Stop Time Status Last Admin Dose Admin Acetaminophen (Tylenol) 500 mg Q4H PRN ORAL Mild Pain (Pain Scale 1-3) 03/02/20 11:15 04/01/20 11:14 Amlodipine Besylate (Norvasc) 2.5 mg DAILY ORAL 03/03/20 09:00 04/02/20 08:59 03/06/20 08:21 Azithromycin 500 mg/Dextrose 275 ml @ 275 mls/hr Q24HRS IV 03/02/20 22:30 03/08/20 23:29 03/05/20 23:04 Ceftriaxone Sodium 1 gm/ Dextrose 55 ml @ 110 mls/hr Q24H IVPB 03/02/20 22:00 03/09/20 21:59 03/05/20 22:15 Risperidone (RisperDAL) 3 mg BID ORAL 03/02/20 18:00 04/16/20 17:59 03/06/20 08:21 Assessment/Plan Assessment/Plan 1. Pneumonia. - currently saturating well on room air; no fever, shortness of breath. - provide supplemental oxygen as needed. - On azithromycin and Rocephin IV - ok to switch to PO Abx; ID specialist recs appreciated 2. Weakness. - monitor. 3. AMS on arrival, likely secondary to #1 medically stable for dc back to facility The care for this patient was discussed with my supervising physician. Time spent for this case was approximately 31 minutes. Devon Powell Mar 06, 2020 09:03
[2020-03-06 12:00] VITALS: BP 130/56
--- NOTE | 2020-03-06 12:11 | Infectious Diseases Prog Note ---
Assessment/Plan Assessment/Plan antibiotics : ceftriaxone, azithromycin A 1. Pneumonia. COVID19 test is negative. 2. Hypertension. 3. leucocytosis improving P 1. continue ceftriaxone, azithromycin 2. will follow up cultures Subjective ROS Limited/Unobtainable: Yes Allergies: Coded Allergies: No Known Allergies (Unverified , 03/01/20) Objective Last 24 Hour Vital Signs Date Time Temp Pulse Resp B/P (MAP) Pulse Ox O2 Delivery O2 Flow Rate FiO2 03/06/20 09:00 Room Air 03/06/20 08:21 78 137/58 03/06/20 08:00 97.9 78 16 137/58 (84) 97 03/06/20 04:00 97.3 51 16 106/58 (74) 96 03/06/20 00:00 97.7 65 16 103/63 (76) 95 03/05/20 21:00 Room Air 03/05/20 20:00 97.2 61 16 105/68 (80) 95 03/05/20 16:00 98.4 75 18 118/62 (80) 97 Height (Feet): 5 Height (Inches): 8.00 Weight (Pounds): 165 Respiratory/Chest: lungs clear Cardiovascular: normal rate, regular rhythm, no gallop/murmur Abdomen: soft, non tender Extremities: no edema Microbiology Date/Time Source Procedure Growth Status 03/04/20 08:00 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 Complete Current Medications Medications (Trade) Dose Ordered Sig/Emily Route PRN Reason Start Time Stop Time Status Last Admin Dose Admin Acetaminophen (Tylenol) 500 mg Q4H PRN ORAL Mild Pain (Pain Scale 1-3) 03/02/20 11:15 04/01/20 11:14 Amlodipine Besylate (Norvasc) 2.5 mg DAILY ORAL 03/03/20 09:00 04/02/20 08:59 03/06/20 08:21 Azithromycin 500 mg/Dextrose 275 ml @ 275 mls/hr Q24HRS IV 03/02/20 22:30 03/08/20 23:29 03/05/20 23:04 Ceftriaxone Sodium 1 gm/ Dextrose 55 ml @ 110 mls/hr Q24H IVPB 03/02/20 22:00 03/09/20 21:59 03/05/20 22:15 Risperidone (RisperDAL) 3 mg BID ORAL 03/02/20 18:00 04/16/20 17:59 03/06/20 08:21 Serge Aguayo MD Mar 06, 2020 12:11
--- NOTE | 2020-03-06 13:06 | NUR ---
*-*DISCHARGE PLAN*-* PATIENT HAS BEEN ACCEPTED AND WILL BE DISCHARGE BACK TO: [facility] P: [phone] S/W ENRIQUE, PATIENT WILL BE GIVEN ROOM UPON ARRIVAL.
--- NOTE | 2020-03-06 13:08 | NUR ---
*-*DISCHARGE PLAN*-* PATIENT HAS BEEN ACCEPTED AND WILL BE DISCHARGE BACK TO: [facility] P: [phone] S/W ENRIQUE, PATIENT WILL BE GIVEN ROOM UPON ARRIVAL.
--- NOTE | 2020-03-06 14:30 | NUR ---
NURSE NOTES: RN called [facility] and spoke to Thuy. She said ambulance will be here @15:15pm. RN endorsed to the primary nurse.
[2020-03-06 16:00] VITALS: BP 119/76
--- NOTE | 2020-03-06 16:13 | NUR ---
*-*DISCHARGE PLAN*-* PATIENT HAS BEEN ACCEPTED AND WILL BE DISCHARGE BACK TO: [facility] P: [phone] FOR NURSE TO NURSE REPORT [facility] WAS SET FOR 2:30PM, [facility] IS RUNNING LATE, ETA IS 5PM S/W JOHN [id number].
--- NOTE | 2020-03-06 18:28 | NUR ---
NURSE NOTES: Patient discharge to [facility]; left the floor via gurney accompanied by two [facility] personnel; IV access and name tag removed; belonging counted and given to the ambulance personnel; printed package given to ambulance personnel; patient stable upon discharge;
--- NOTE | 2020-03-07 16:18 | Discharge Summary ---
Discharge Summary Discharge Summary _ Date of admission: 03/01/2020 Date of discharge: 03/06/[address] Hernandez History of Present Illness and Brief Hospital Course Mr. Quintana is a 54-year-old male with history of psychosis, and hypertension, who presented to the ED from intermediate facility due to generalized weaknes s and multiple falls over the past week. Patient reported of mild weakness in his right hand, stating "I cannot extend my index finger". Patient also reported dry cough and shortness of breath for 2 days. Patient tested negative for COVID-19. CT of the head without IV contrast revealed no acute findings in the head/brain. X-ray of the chest, however, revealed patchy bibasilar infiltrates in the lungs. Patient was afebrile. Initial laboratory studies in the ER showed mild leukocytosis with neutrophil predominance, elevated BUN, hyperglycemia, and elevated lactic acid. Patient received antibiotics and fluids and was admitted for IV antibiotics. Patient was started on IV azithromycin and Rocephin for pneumonia. Patient was saturating well on room air without fever or shortness of breath. Therefore steroids were not used, though considered. 2 blood cultures showed no growth after 5 days, and subsequently IV antibiotics were discontinued. It was decided that no antibiotics were needed upon discharge. Patient has a history of hypertension and thus his home antihypertensive medication was continued during his admission. Patient also has a history of psychosis and his risperidone was continued during his admission. All in all, his white blood cell count showed improvement and the patient was medically stable for discharge back to SNF. Patient was discharged back to [facility], via [facility] accompanied by two [facility] personnel. Consultants: Pulmonology Dr. Robles Infectious disease Dr. Arboleda, Dr. Aguayo Discharge Condition Stable on room air, without fever, cough, or shortness of breath Discharge Activity As tolerated Final diagnoses Pneumonia Weakness Leukocytosis, resolved Sepsis with tachycardia and leukocytosis at the time of admission Altered mental status, likely secondary to pneumonia I have been assigned to dictate discharge summary for this account. Devon Powell Mar 07, 2020 16:18
== END 2020-03-06 18:11 | disposition home or self-care (01) | DRG 871 ==
LOC: EDBD 21:08 → EMR 21:58 → 4E 22:20 → EDBEDREQ 03-02 07:35
DX: A41.9 Sepsis, unspecified organism (principal); J18.9 Pneumonia, unspecified organism; G93.41 Metabolic encephalopathy; I10 Essential (primary) hypertension; Z03.818 Encounter for observation for suspected exposure to other biological agents ruled out; F29 Unspecified psychosis not due to a substance or known physiological condition; F17.200 Nicotine dependence, unspecified, uncomplicated
CPT/HCPCS: 36415; 70450; 71045; 80053; 82140; 83605; 83690; 85007; 85025; 85610; 85730; 87040; 87081; 93005; 96361; 96365; 96367; 99285; J7030; U0002